=== PATIENT | female | born 1990 | race African-American/Black ===

== ENCOUNTER 2024-08-26 13:23 | Day surgery (SDC) | payer OTHER ==
[~2024-08-26] VITALS: Ht 157.5 cm; Wt 77.7 kg
[~2024-08-26 13:23] MED LIST: FAMO10TA50 PO; LORA-930 PO; NORG1TAB40 PO; NS 1,000 ML IV ONE; SERT50TA29 PO; SPIR50TA4 PO
[2024-08-26] MEDS ORDERED: propofoL 200 MG/20 ML VIAL As Ordered ONE (15:30)
[2024-08-26 15:58] VITALS: BP 118/71; O2SAT 100
== END 2024-08-26 16:14 | disposition home or self-care (01) ==
LOC: M OPP 13:23
PROVIDERS: ATTEND Internal Medicine Gastroenterology
DX: R11.2 Nausea with vomiting, unspecified (principal); K21.9 Gastro-esophageal reflux disease without esophagitis; E28.2 Polycystic ovarian syndrome; Z79.899 Other long term (current) drug therapy